=== PATIENT | male | born 1955 | race Caucasian/White ===

== ENCOUNTER 2017-07-06 17:36 | Observation (INO) | payer MEDICARE, MEDICAID ==
[~2017-07-06] VITALS: Ht 181.6 cm; Wt 220.0 kg
[~2017-07-06 17:36] MED LIST: ACIDOPHILUS1 CAP PO; ADDERALL 10 MG10 MG; ADDERALL XR 2020 MG; ADVAIR; ADVAIR 2501 DISK W/D; ALBUTEROL INHALER; ALBUTEROL17 GM; ALBUTEROL2.5 MG/3 M INH; ALLOPURINOL100 M1 PO; ASMANEX220 MC1 IH; ASPIR-MOX IB T325 MG PO; ASPIRIN EC325 M1 PO; ATACAND HCT 32/1 TAB; AUGMENTIN 500-11 TAB PO; AUGMENTIN 875-11 TAB PO; B-121000 MC2 PO; B/P MED; B12 PO; BACTRIM DS TAB1 EAC2 PO; BACTRIM DS TABL1 TAB PO; BACTROBAN22 GM TP; BUSPIRONE HCL15 M2 PO; ECONAZOLE NITRA15 GM TP; EFFEXOR; EFFEXOR XR75 MG; EQL FISH OIL 1,1 CA1 PO; FENOPROFEN CAL600 MG; FLOVENT DISKU250 MC1 IH; GLUCOSAMINE & C1 CAP PO; GLYCOLAX14 EA PO; HUMALOG100 UNITS/; HYDROCODONE; IRON1 TA1 PO; IRON325 M2 PO; LEVOXYL88 MCG PO; LISINOPRIL-HCTZ; LOTRISONE CREAM45 GM; LYRICA150 MG/CAP PO; MIRALAX17 G2 PO; NAMENDA10 M1 PO; NAMENDA10 MG PO; NIZORAL30 GM; NORCO 5-325 TA1 EACH PO; NYSTATIN15 G4 TOP; PRINIVIL20 MG PO; PRISTIQ ER50 MG PO; PROVENTIL HFA6.7 G1 INH; SILVADENE20 G1 TP; SPIRIVA18 MCG; TOPAMAX100 MG; TRAZODONE HCL150 MG; TRIAMCINOLONE A15 GM; VICODIN 5/500 T1 TAB PO; VITAMIN D250000 UNI1 PO; WELLBUTRIN SR200 M2 PO; WELLBUTRIN SR200 MG PO; ZESTORETIC 20-1 EAC3 PO; ZESTRIL20 M3 PO; [UNRECOGNIZED DRUG - OTHER]
[2017-07-06 18:34] LABS: BASO % 0.3 % (0-2); EOS % 6.4 % (0-7); EOSINOPHIL ABSOLUTE COUNT 0.5 tho/cmm (0.0-0.7); HCT-HEMATOCRIT 36.8 % (36.0-53.5); HGB-HEMOGLOBIN 11.9 gm/dl (13.5-17.0); IMMATURE GRANULOCYTES ABSOLUTE 0.01 tho/cmm (0-0.03); IMMATURE GRANULOCYTES PERCENT 0.1 % (0-0.3); LYMPH ABSOLUTE COUNT 0.9 tho/cmm (0.8-4.5); MCH (MEAN CORPUSCULAR HGB) 27.2 pg (28.0-32.0); MCHC MEAN CORPUSCULAR HGB CONC 32.3 % (32.0-36.0); MEAN PLATELET VOLUME 8.5 cmc (9.4-12.4); MONO % 6.2 % (0-12); MONOCYTE ABSOLUTE COUNT 0.5 tho/cmm (0.0-1.2); PLATELET COUNT 154 tho/cmm (150-450); RED BLOOD COUNT 4.38 mil/cmm (4.40-5.70); RED CELL DISTRIBUTION WIDTH 15.1 % (12.4-16.4); WHITE BLOOD COUNT 7.9 tho/cmm (4.0-10.0)
[2017-07-06 18:46] LABS: ANION GAP 8 mmol/L (0-20); BLOOD UREA NITROGEN 14 mg/dl (6-24); CALCIUM 8.4 mg/dl (8.5-10.5); CARBON DIOXIDE-VENOUS 30 mmol/L (22-32); CHLORIDE 104 mmol/l (96-110); CREATININE 1.03 mg/dl (0.60-1.30); GLUCOSE 93 mg/dL (70-110); POTASSIUM 3.8 mmol/L (3.7-5.1); SODIUM 138 mmol/L (135-145); eGFR VALUE FOR BLACK >90 mL/Min
[2017-07-06 18:50] LABS: URINE APPEARANCE BLOODY; URINE BILIRUBIN NEGATIVE (NEG); URINE BLOOD LARGE (NEG); URINE COLOR RED; URINE GLUCOSE (UA) NEGATIVE (NEG); URINE KETONE NEGATIVE (NEG); URINE LEUKOCYTE ESTERASE POSITIVE (NEG); URINE NITRITE NEGATIVE (NEG); URINE PROTEIN MODERATE (NEG)
[2017-07-06 18:58] LABS: URINE RBC FULL FIELD /[HPF] (0-5)
[2017-07-06 19:00] LABS: URINE EPITHELIAL CELLS 0-2 /[HPF] (0-10)
[2017-07-07 05:54] LABS: BASO % 0.3 % (0-2); EOS % 5.7 % (0-7); EOSINOPHIL ABSOLUTE COUNT 0.4 tho/cmm (0.0-0.7); HCT-HEMATOCRIT 36.4 % (36.0-53.5); HGB-HEMOGLOBIN 11.4 gm/dl (13.5-17.0); IMMATURE GRANULOCYTES ABSOLUTE 0.01 tho/cmm (0-0.03); IMMATURE GRANULOCYTES PERCENT 0.1 % (0-0.3); LYMPH % 14.6 % (20-45); LYMPH ABSOLUTE COUNT 1.1 tho/cmm (0.8-4.5); MCH (MEAN CORPUSCULAR HGB) 27.1 pg (28.0-32.0); MCHC MEAN CORPUSCULAR HGB CONC 31.3 % (32.0-36.0); MCV (MEAN CELL VOLUME) 86.5 fl (82.0-96.0); MEAN PLATELET VOLUME 8.5 cmc (9.4-12.4); MONO % 5.3 % (0-12); MONOCYTE ABSOLUTE COUNT 0.4 tho/cmm (0.0-1.2); NEUTROPHIL ABSOLUTE COUNT 5.3 tho/cmm (1.6-8.0); NEUTROPHIL-AUTOMATED 5.3 tho/cmm (1.6-8.0); PLATELET COUNT 150 tho/cmm (150-450); RED BLOOD COUNT 4.21 mil/cmm (4.40-5.70); RED CELL DISTRIBUTION WIDTH 15.4 % (12.4-16.4); WHITE BLOOD COUNT 7.2 tho/cmm (4.0-10.0)
[2017-07-07 06:06] LABS: ANION GAP 9 mmol/L (0-20); BLOOD UREA NITROGEN 13 mg/dl (6-24); CALCIUM 8.1 mg/dl (8.5-10.5); CARBON DIOXIDE-VENOUS 32 mmol/L (22-32); CHLORIDE 105 mmol/l (96-110); GLUCOSE 102 mg/dL (70-110); POTASSIUM 4.1 mmol/L (3.7-5.1); SODIUM 142 mmol/L (135-145); eGFR VALUE FOR BLACK >90 mL/Min
== END 2017-07-07 18:00 ==
LOC: EDMED → EDBD 17:36 → 5WE 22:36 → EMR2 22:36 → 5WE 23:59
PROVIDERS: Emergency Medicine; ADMIT Hospitalist
DX: R31.9 Hematuria, unspecified (principal); E66.01 Morbid (severe) obesity due to excess calories; Z68.44 Body mass index [BMI] 60.0-69.9, adult; I10 Essential (primary) hypertension; E03.9 Hypothyroidism, unspecified; J44.9 Chronic obstructive pulmonary disease, unspecified; F32.9 Major depressive disorder, single episode, unspecified; I89.0 Lymphedema, not elsewhere classified; G47.33 Obstructive sleep apnea (adult) (pediatric); G89.29 Other chronic pain; M54.5 Low back pain; Z79.82 Long term (current) use of aspirin; Z79.51 Long term (current) use of inhaled steroids; Z79.899 Other long term (current) drug therapy; Z88.1 Allergy status to other antibiotic agents; Z88.8 Allergy status to other drugs, medicaments and biological substances; Z91.018 Allergy to other foods; Z99.81 Dependence on supplemental oxygen
CPT/HCPCS: G8978-GP-CK; G8979-GP-CJ; G8980-GP-CK; J1170; J2405; J7030